=== PATIENT | male | born 1970 ===

== ENCOUNTER → 2018-08-06 18:52 | Outpatient (ROUT) | payer OTHER, SELFPAY ==
[2018-08-06 20:08] LABS: HIV 1 and 2 Antibody NEGATIVE (NEGATIVE); Hep C Virus Ab w/Reflex Quant NEGATIVE s/c (NEGATIVE)
[2018-08-06 20:57] LABS: Urine N gonorrhoeae NOT DETECTED
[2018-08-06 20:58] LABS: Urine Chlamydia NOT DETECTED
[2018-08-09 14:14] LABS: RPR Screen Nonreactive (Nonreactive)
[2018-08-11 15:37] LABS: HSV 2 IGG AB < 0.90 index (< 0.90)
== END ==
PROVIDERS: Visit Provider Family Medicine
DX: Z11.3 Encounter for screening for infections with a predominantly sexual mode of transmission (principal); Z11.4 Encounter for screening for human immunodeficiency virus [HIV]
CPT/HCPCS: 36415; 86592; 86695; 86696; 86703; 86803; 87491; 87591